=== PATIENT | female | born 1955 | race Caucasian/White ===

== ENCOUNTER 2016-10-27 05:56 | Day surgery (SDC) | payer OTHER ==
[2016-10-27] MEDS ORDERED: LIDOCAINE 1% 5 ML SDV ID PRN (06:16)
[2016-10-27] MEDS ORDERED: LR 1,000 ML IV ONE (06:16)
[2016-10-27] MEDS ORDERED: LIDOCAINE 1% 5 ML SDV ONE (06:19)
[2016-10-27] MEDS ORDERED: SKIN ADHESIVE (DERMABOND) 1 EACH TP ONE (06:24)
[2016-10-27] MEDS ORDERED: LIDOCAINE 1% 30 ML SDV ONE (06:24)
[2016-10-27] MEDS ORDERED: BUPIVACAINE 0.5% 30 ML SDV ONE (06:24)
[2016-10-27] MEDS ORDERED: BACITRACIN 50,000 UNITS/10 ML SYR IRR ONE (06:25)
[2016-10-27] MEDS ORDERED: POLYMYXIN B SULFATE 500,000 UNIT/10 ML SYR IRR ONE (06:25)
[2016-10-27] MEDS ORDERED: SCOPOLAMINE HYDROBROMIDE 1.5 MG PATCH TD ONE (07:08)
[2016-10-27] MEDS ORDERED: MIDAZOLAM 2 MG/2 ML VIAL ONE (07:09)
[2016-10-27] MEDS ORDERED: fentaNYL 250 MCG/5 ML INJ ONE (07:16)
[2016-10-27] MEDS ORDERED: PROPOFOL/EMULSION 500 MG/50 ML BOTTLE IV ONE (07:16)
[2016-10-27] MEDS ORDERED: fentaNYL 100 MCG/2 ML INJ ONE ×2 (08:51→09:18)
[2016-10-27] MEDS ORDERED: oxyCODONE IR 5 MG TAB ONE (10:05)
--- NOTE | 2016-10-28 04:01 | GOP ---
[f rep st] OPERATIVE REPORT PATIENT: DIMA TRUJILLO DATE OF SERVICE: 10/27/16 PATIENT DATE OF : 1955 SURGEON: Quintin Bates M.D. WAITER/WAITRESS ECONOMY CLASS: Shanelle Rojas PA-C Mrs. Souza assistance was medically necessary for patient positioning and the safe retraction of vital structures. ANESTHESIA: General / regional anesthesia by surgeon PREOPERATIVE DIAGNOSES: Right elbow septic olecranon bursitis (ICD-10 code M70.20 olecranon bursitis) POSTOPERATIVE DIAGNOSES: Right elbow septic olecranon bursitis (ICD-10 code M70.20 olecranon bursitis) OPERATIVE PROCEDURES: CPT code 92587 Right elbow olecranon bursa excision CPT code 07050 -- Right elbow cubital tunnel decompression CPT code 84990 Debridement of muscle and fascia, first 20 square cm or less Modifier 47 -- Regional anesthesia by surgeon ESTIMATED BLOOD LOSS: 1cc COMPLICATIONS: None IMPLANTS: None TOURNIQUET TIME: 33 minutes at 250mmHg BRIEF CLINICAL NOTE: This is a very pleasant 61 year old female with a significant history for right elbow septic olecranon bursitis. As such, I have discussed the risks, benefits, alternatives, and complications associated with both non-operative (specifically, casting) and operative (specifically, right elbow olecranon bursa excision with irrigation and debridement and possible cubital tunnel decompression) forms of treatment. The patient fully understands the risks, benefits, alternatives, and complications associated with both forms of treatment and wishes to proceed with operative intervention as outlined above. The patient has signed the informed consent form for surgery. OPERATIVE NOTE: On the day of surgery, all of the patients questions were answered. The patient was then transferred from the pre-operative area into the operating room and a formal, Time-Out procedure was performed. The patient was identified by name, medical record number, social security number, and date of . In addition, the patients right upper extremity was identified as the correct portion of the patients body for surgery with the patients right elbow being identified as the correct portion of that extremity for surgery. The anesthesia team administered pre-operative antibiotics for prophylaxis. The patient was then transferred from the preoperative gurney onto the operating room table and placed in the lateral decubitus position. The brachium was then padded with webril and a tourniquet was applied. The extremity was then prepped and draped in the normal sterile fashion. A sterile marking pen was then utilized to clari out a curvilinear incision overlying the posterior aspect of the olecranon and along the subcutaneous border of the ulna curving radially around the tip of the olecranon process. Next, an Esmarch was then utilized to exsanguinate the right upper extremity and the tourniquet was insufflated to 250 mmHg. A #15 blade was then used to incise through the skin. Meticulous hemostasis was obtained in the subcutaneous plane. Radial and ulnar full thickness skin flaps were then carefully elevated to expose the underlying olecranon bursa.The ulnar nerve was identified proximal to the cubital tunnel and was carefully traced distally. The ulnar nerve was then decompressed throughout the length of the cubital tunnel. The olecranon bursa was then excised en bloc and sent to the laboratory for microbiologic examination. The subcuanteous tissue, muscle and fascia were then sharply surgically debrided and copiously irrigated with sterile normal saline. The skin was then re-approximated with 3-0 nylon sutures. A mixture of 1% lidocaine and 0.5% Marcaine was utilized to perform a regional block of the operative site. Betadine soaked gauze was then applied to the incision by a dry sterile dressing and a compressive isabelle wrap. Once the dressing was completely in place, the tourniquet was deflated. After complete deflation of the tourniquet all fingers and the thumb demonstrated brisk capillary refill. The patient was then reversed from anesthesia and transferred from the operating room table to the postoperative gurney and transferred from the operating room to the post anesthesia care in stable condition. POSTOPERATIVE PLAN: The patient will remain in the current splint and dressing for the next 2 weeks. I will see the patient back in the office in 2 weeks at which point her original dressing will be removed and the sutures will be removed. /[id number]/MODL MTDD
== END 2016-10-27 11:25 | disposition home or self-care (01) ==
LOC: FSGY 05:56
PROVIDERS: ATTEND Orthopaedic Surgery Hand Surgery
PROC: 0MB30ZZ Excision of Right Elbow Bursa and Ligament, Open Approach (ICD-10-PCS; principal; 2016-10-27 07:15)
PROC: 01N40ZZ Release Ulnar Nerve, Open Approach (ICD-10-PCS; principal; 2016-10-27 07:15)
DX: M71.121 Other infective bursitis, right elbow (principal); K21.9 Gastro-esophageal reflux disease without esophagitis; F32.9 Major depressive disorder, single episode, unspecified
CPT/HCPCS: J0690; J2250; J2704; J3010

== ENCOUNTER 2016-11-06 12:16 | Observation (INO) | payer OTHER ==
[2016-11-06] MEDS ORDERED: HYDROmorphONE/DILAUDID 1 MG/ML SYR IVP ONE (12:33)
[2016-11-06] MEDS ORDERED: ONDANSETRON 4 MG/2 ML VIAL IVP ONE ×2 (12:33→13:23)
[2016-11-06] MEDS ORDERED: NS 1,000 ML IV ONE (12:33)
[2016-11-06] MEDS ORDERED: ONDANSETRON 4 MG/2 ML VIAL ONE (12:34)
--- NOTE | 2016-11-06 12:40 | EDPHY ---
H & P Stated Complaint: Slipped on ice and pain in Rt humerous Source: Patient Exam Limitations: No limitations - Personal History Current Tetanus/Diphtheria Vaccine: Yes Current Tetanus Diphtheria and Acellular Pertussis (TDAP): Yes - Medical/Surgical History Hx Asthma: No Hx Chronic Respiratory Disease: No Hx Diabetes: No Hx Cardiac Disease: No Hx Renal Disease: No Hx Cirrhosis: No Hx Alcoholism: No Hx HIV/AIDS: No Hx Splenectomy or Spleen Trauma: No Other PMH: med hx-depression,gerd,uterine ca,seasonal allergies. surg-appy,rt shoulder,left knee,hyst - Social History Smoking Status: Never smoked HPI/ROS: CHIEF COMPLAINT: Fall, humerus pain HISTORY OF PRESENT ILLNESS: slipped and fell in her garage immediately prior to arrival, landing with her arm up and externally rotated. She fell forward. She did not strike her head or lose conscious. She has no back or neck pain. No chest pain or shortness of breath. No abdominal pain. She is complaining of severe pain in the proximal humerus. No actual shoulder joint pain. No position of comfort. He received IV fentanyl EN route by EMS with no improvement. She has no numbness, tingling, cyanosis, pallor distally to the injury. No injury in the ipsilateral elbow, forearm, wrist or hand. She is less than 2 weeks out of a bursectomy on the right elbow that she has seen her surgeon for earlier today. No other associated complaints or modifying factors. Ate scone and coffee this morning less than 2 hours ago PRIOR ORTHO INJURIES: right elbow bursectomy ESTABLISHED ORTHOPEDIST: Dr. choudhary REVIEW OF SYSTEMS: Ten systems reviewed and are negative unless otherwise noted in the HPI EXAMINATION General Appearance: Alert, no distress Head: normocephalic, atraumatic Eyes: Pupils equal and round, no conjunctival pallor or injection. EOMs intact. ENT, Mouth: Mucous membranes moist . Uvula midline. Neck: Normal inspection . No tenderness or crepitus Respiratory: No dyspnea or retractions. No distress Cardiovascular: Pulses normal throughout with symmetric radial pulses at 2+. Brisk cap refill Gastrointestinal: No distention Neurological: A&O, sensory symmetric, strength symmetric in both legs. Strength on testing in the right upper extremity due to pain Skin: Warm and dry, no rash. No lacerations, contusions or abrasions. Right elbow suture line intact. No dehiscence or surrounding erythema. Extremities: Significant tenderness to palpation of the right proximal humerus. Range of motion not tested due to pain. There is no tenderness in the ipsilateral elbow, forearm, wrist or hand. Sensory intact in the radial, ulnar and median distributions. No wrist drop. Psychiatric: Mood and affect normal DIFFERENTIAL DIAGNOSES: Including but not limited to Fracture, strain, sprain, contusion MDM: 12:30 p.m. mechanical fall with pain in the proximal right humerus. Suspect humeral fracture. She is neurovascularly intact distal to the injury. X-rays pending at this time. 1:50 p.m. humeral head and humeral neck fracture. She remains neurovascular intact distally. No injury to the recent surgical incision of the right elbow. At the patient's request, I did contact her established orthopedists. I discussed the case with his PAShanelle. She informed me that this is a non operative fracture. She recommended conservative management with sling and swath. I informed her that the patient says she cannot tolerate her pain despite all this , especially to admit her. The PA informed that they do not admit this scenario as it is nonsurgical, that she could be seen in their office next week. Thus I did contact the hospitalist for admission for pain control. I discussed the case and they will admit her for further care. ED Precautions: Worsening pain. Erythema, edema, cyanosis, pallor, paresthesia or anesthesia. SUPERVISION: Patient was evaluated in conjunction with the supervising physician. Please see their note for details. (Fredrick Guthrie) Constitutional: Initial Vital Signs Temperature (C) 36.4 C 11/06/16 12:16 Heart Rate 69 11/06/16 12:16 Respiratory Rate 16 11/06/16 12:16 Blood Pressure 134/74 H 11/06/16 12:16 O2 Sat (%) 98 11/06/16 12:16 O2 Delivery Mode Room Air Allergies/Adverse Reactions: No Known Allergies Allergy (Verified 03/28/15 19:33) Home Medications: Medication Instructions Recorded Fluoxetine HCl [Prozac 40 mg] 07/04/14 Fluticasone Nasal [Flonase Nasal 03/28/15 [place]] Hydrocodone/APAP 5/325 [[place] 1 - 2 tab PO Q4PRN PRN #20 tab 03/28/15 5/325 (*)] Pantoprazole Sodium [Protonix 40mg 03/28/15 (RX)] Medical Decision Making Other Provider: I supervised the care of Fredrick Guthrie PA-C. I spent an extensive amount of time in consultation with Dr. Cramer from the hospitalist service, [facility] the [facility] admitting nurse, and via phone with Dr. Galdamez. The patient will be admitted for orthopedic evaluation and pain control. (Bipin Durand) - Data Points Medications Given: Discontinued Medications Hydromorphone HCl (Dilaudid) 1 mg IVP EDNOW ONE Stop: 11/06/16 12:34 Last Admin: 11/06/16 12:40 Dose: 1 mg Sodium Chloride (Ns) 1,000 mls @ 0 mls/hr IV ONCE ONE PRN Reason: Wide Open Stop: 11/06/16 12:34 Last Admin: 11/06/16 12:40 Dose: 1,000 mls Ondansetron HCl (Zofran) 8 mg IVP EDNOW ONE Stop: 11/06/16 12:34 Last Admin: 11/06/16 12:38 Dose: 8 mg Ondansetron HCl (Zofran) 4 mg IVP EDNOW ONE Stop: 11/06/16 13:24 Last Admin: 11/06/16 14:10 Dose: 4 mg Departure - Departure Disposition: [facility] Inpatient Acute Clinical Impression: Intractable pain Humerus head fracture Qualifiers: Encounter type: initial encounter Fracture type: closed Laterality: right Qualifier Code: (S42.291A) Other displaced fracture of upper end of right humerus, initial encounter for closed fracture Condition: Fair
--- NOTE | 2016-11-06 13:15 | DX ---
Right Humerus, 4views History: Trauma, pain, fall Comparison: None Findings: There is a comminuted fracture of the right humeral head and neck. The humeral head is nor alexis located in the glenoid. The humeral neck is slightly laterally displaced and mildly shortened c ompared to the humeral head. The more distal humerus is normal. Impression: Humeral head and neck fracture. Consider obtaining x-rays centered at the shoulder.
[2016-11-06] MEDS ORDERED: PROMETHAZINE HCL 25 MG/ML INJ IM ONE (13:23)
[2016-11-06] MEDS ORDERED: ONDANSETRON 4 MG/2 ML VIAL IVP PRN (14:31)
[2016-11-06] MEDS ORDERED: PROMETHAZINE HCL 25 MG/ML INJ IVP PRN (14:31)
[2016-11-06] MEDS ORDERED: DIAZEPAM 2 MG TAB PO PRN (14:38)
[2016-11-06] MEDS ORDERED: HYDROmorphONE/DILAUDID 1 MG/ML SYR ONE (14:43)
[2016-11-06] MEDS: HYDROmorphONE/DILAUDID 1 MG/ML SYR IVP PRN (14:58)
--- NOTE | 2016-11-06 15:52 | GHP ---
[f rep st] HISTORY AND PHYSICAL DATE OF ADMISSION: 11/06/2016 DATE OF EVALUATION: 11/06/2016 CHIEF COMPLAINT: Right arm pain. HISTORY OF PRESENT ILLNESS: This is a 61-year-old female who presents status post a mechanical fall with complaints of acute right arm pain. Patient had presented to her orthopedic clinic with Dr. Manish smith earlier this morning for evaluation of an elbow infection, which he has been treating. Patient had uneventful visit with him, returned home, slipped and fell, bracing her fall with her right arm a nd ultimately fracturing it. Patient describes unmanageable pain with associated nausea. Denies any palpitation, shortness of breath, headache. Denies chronic rhinorrhea. Intermittent dysphagia. De nies any dysuria or hematuria. Patient has issues with chronic diarrhea, for which she takes supplem ents. Denies any blood in her stools, lower extremity edema or other joint complaints beyond her rec ent right elbow infection. PAST MEDICAL HISTORY: 1. Right elbow infection, receiving active treatment. 2. Uterine cancer, status post surgical intervention, chemotherapy and radiation. She has 4-1/2 yea rs out from diagnosis. 3. Chronic rhinorrhea. 4. Depression. 5. Gastroesophageal reflux disease. SOCIAL HISTORY: Negative for tobacco. Very rare alcohol. No illicit drugs or marijuana. FAMILY HISTORY: Negative for diabetes or heart disease. Both parents are ADVANCE DIRECTIVE: Patient is full COR, full tube. Her friend is her MD LEE. REVIEW OF SYSTEMS: A 10-point review of systems is negative with the exception of that reported in H PI. PHYSICAL EXAMINATION: VITAL SIGNS: Blood pressure 134/74, heart rate 69, respiratory rate 16, 98% o n room air, 36.4. GENERAL: This is a healthy-appearing middle-aged female in mild distress. HEENT: Notable for moist mucous membranes. Eye exam is negative for any icterus. CARDIAC: Patient is re gular rate and rhythm. No murmurs, gallops or rubs. PULMONARY: Patient has adequate respiratory ef fort, is clear to auscultation on the anterior left chest. GASTROINTESTINAL: Positive bowel sounds. MUSCULOSKELETAL: Negative for any lower extremity edema. SKIN: Negative for any rashes. NEUROLO GIC: Patient is alert and oriented x3. PSYCHIATRIC: She is tearful on interview and examination. IMAGING: Humeral x-ray, which I personally reviewed and interpreted, shows a humeral head and neck f racture, described as laterally displaced by Radiology. LABORATORY DATA: White blood cell count from 10/21/2016 is 6.3, H and H are 11 and 34. Creatinine a t the time is 0.7. ASSESSMENT AND PLAN: This is a 61-year-old female without significant medical comorbidities, present ing with acute humeral fracture. 1. Acute right humeral fracture, confirmed by plain film x-ray. Case was reviewed with Orthopedic S jamila. This is a nonoperative fracture per their evaluation. Patient will be admitted for adequate pain control. She is to follow with her orthopedic surgeon post disposition in the next 7 days. We will build a pain regimen during this observation stay that will keep her comfortable at home. 2. Acute nausea secondary to pain. We will treat with IV antiemetics as needed. 3. Gastroesophageal reflux disease. We will continue her acid suppression medication once reconcile d. 4. Chronic depression. We will continue her stable home dosing of medications once reconciled. 5. Prophylaxis. The patient is observation only. We will encourage ambulation. DIET: Regular. DISPOSITION: I expect in less than 2 midnights. This patient is being admitted for pain control and treatment of her nausea. I have discussed the case with the emergency room physician. Patient will be triaged to the [facility] for care. /[id number]/MODL
[2016-11-06] MEDS: oxyCODONE IR 5 MG TAB PO PRN ×2 (19:03→23:33)
[2016-11-06] MEDS: ONDANSETRON DISINTEGRATING 4 MG TAB PO PRN (19:09)
[2016-11-06] MEDS: AMOXICILLIN/CLAVULANATE POT 875/125 MG TAB PO SCH (20:53)
[2016-11-06] MEDS: PANTOPRAZOLE SODIUM 40 MG TAB PO SCH (20:54)
[2016-11-06] MEDS: FLUoxetine 20 MG CAP PO SCH (20:54)
[2016-11-06] MEDS ORDERED: NON-FORMULARY NEW DRUG (Fluoxetine Hcl [Prozac 40 Mg] 40 MG) PO SCH (21:00)
[2016-11-07] MEDS: oxyCODONE IR 5 MG TAB PO PRN ×5 (02:39→21:53)
[2016-11-07] MEDS: DIAZEPAM 5 MG TAB PO PRN ×2 (02:40→12:21)
[2016-11-07] MEDS: HYDROmorphONE/DILAUDID 1 MG/ML SYR IVP PRN (02:50)
[2016-11-07] MEDS ORDERED: PROMETHAZINE HCL 25 MG TAB PO PRN (08:48)
[2016-11-07] MEDS: FLUTICASONE NASAL 120 SPRAYS/16 GM MDI EACHNARE SCH (09:00)
[2016-11-07] MEDS: AMOXICILLIN/CLAVULANATE POT 875/125 MG TAB PO SCH ×2 (09:14→21:51)
[2016-11-07] MEDS: ONDANSETRON DISINTEGRATING 4 MG TAB PO PRN ×3 (12:13→22:00)
--- NOTE | 2016-11-07 12:41 | PDIAF ---
- Diagnosis Diagnosis: humeral fracture Code Status: Full Code - Medication Management Discharge Medications: Medications to Continue on Transfer Fluoxetine HCl [Prozac 40 mg] 40 mg PO HS 07/04/14 [Last Taken 11/05/16] Pantoprazole Sodium [Protonix 40mg (*)] 40 mg PO HS 03/28/15 [Last Taken ] Amoxicillin/Clavulanate Pot [Augmentin 875 MG TAB (*)] 875 mg PO BID 11/06/16 [ Last Taken 11/06/16 AM DOSE] Fluticasone Nasal [Flonase Nasal [place]] 1 sprays NASAL DAILY 11/06/16 [Last Taken 11/06/16] Diazepam [Valium 5 MG (*)] 2.5 mg PO Q6 PRN #10 tab 11/07/16 [Last Taken Unknown ] Ondansetron Odt [Zofran Odt 4 mg (*)] 4 mg PO Q4HRS PRN #30 tab 11/07/16 [Last Taken Unknown] Promethazine HCl [Phenergan 25mg (*)] 25 mg PO Q6HRS PRN #30 tab 11/07/16 [Last Taken Unknown] oxyCODONE IR [Oxycodone Ir (*)] 5 - 10 mg PO Q3HRS PRN #45 tab 11/07/16 [Last Taken Unknown] Discharge Medications: Refer to the Discharge Home Medication list for PRN reason. - Orders Services needed: Home Care, Registered Nurse, Certified [employer] Home Care Face to Face: I certify that this patient was under my care and that I had the required [id number] encounter meeting the encounter requirements on the discharge day. My findings support the fact that the patient is homebound as defined in CMS Chapter 7 Medicare Benefits Manual 30.1.1, The condition of the patient is such that there exists a normal inability to leave home and consequently, leaving home would require a considerable and taxing effort. Diet Recommendation: no restrictions on diet Diet Texture: Regular Texture Diet - Follow Up Care Current Providers and Referrals: Quintin Bates MD [Medical Doctor] - As per Instructions Patient,NotPresent [Unknown] - As per Instructions
--- NOTE | 2016-11-07 15:48 | HOSPPROG ---
Hospitalist Progress Note Assessment/Plan: # Acute right humeral fracture- arm x-ray (personally reviewed and interpreted ) shows proximal humeral fracture - orthopedics reviewed this is non operative - in mobility sling - p.r.n. pain medications - follow-up next week with Dr. Key # acute somnolence- secondary to narcotic and sedating pain medications patient evaluated by Physical therapy and deemed not safe to discharge home oxygen saturations 96% on 2 L - reduce frequency of oral pain meds - discontinue IV medications - put p.o. diazepam for spasms on hold # depression continue Prozac # chronic right elbow infection- continue home antibiotics- WBC count last checked normal # gastroesophageal reflux disease- continue PPI # patient not ambulating SCDs # dispo - will need to stay an additional night as not safe for disposition I have discussed the case with physical therapy we will keep the patient additional night and decrease medications for safety Subjective: persistent pain this morning but improved with treatment Objective: Vital Signs Temp Pulse Resp BP Pulse Ox 36.9 C 67 16 103/57 L 96 11/07/16 07:24 11/07/16 07:24 11/07/16 07:24 11/07/16 07:24 11/07/16 07:24 - Physical Exam Constitutional: appears nourished Eyes: anicteric sclera Ears, Nose, Mouth, Throat: moist mucous membranes Cardiovascular: No edema Respiratory: no respiratory distress Gastrointestinal: No distension Genitourinary: No sneed in urethra Skin: normal color Musculoskeletal: No asymmetric calves Neurologic: AAOx3 Psychiatric: interacting appropriately Lymph, Heme, Immunologic: no cervical LAD ICD10 Worksheet Patient Problems: Problems Problem Status Diagnosed Humerus head fracture Acute Intractable pain Acute
[2016-11-07] MEDS ORDERED: POLYETHYLENE GLYCOL 3350 17 GM PKT PO PRN (18:23)
[2016-11-07] MEDS ORDERED: LACTULOSE 20 GM/30 ML UDCUP PO PRN (18:23)
[2016-11-07] MEDS ORDERED: MAGNESIUM HYDROXIDE 30 ML UDCUP PO PRN (18:23)
[2016-11-07] MEDS ORDERED: BISACODYL 10 MG SUPP PR PRN (18:23)
[2016-11-07] MEDS: SENNOSIDES/DOCUSATE SODIUM TAB PO SCH (21:52)
[2016-11-07] MEDS: FLUoxetine 20 MG CAP PO SCH (21:52)
[2016-11-07] MEDS: PANTOPRAZOLE SODIUM 40 MG TAB PO SCH (21:53)
[2016-11-08] MEDS: oxyCODONE IR 5 MG TAB PO PRN ×4 (00:19→11:17)
[2016-11-08] MEDS: ONDANSETRON DISINTEGRATING 4 MG TAB PO PRN ×3 (01:59→11:19)
[2016-11-08 08:24] VITALS: BP 102/61; PULSE 75; RESP 14; TEMP 98.2; O2SAT 90
[2016-11-08 08:57] LABS: % IMMATURE GRANULYOCYTES 0.4 % (0.0-1.1); ABSOLUTE IMMATURE GRANULOCYTES 0.03 10^3/uL (0.00-0.10); ADD DIFF? NO; ADD MORPH? NO; ADD SCAN? NO; ATYPICAL LYMPHOCYTE FLAG 0 (0-99); FRAGMENT RBC FLAG 0 (0-99); HEMATOCRIT 33.1 % (38.0-47.0); HEMOGLOBIN 11.1 g/dL (12.6-16.3); LEFT SHIFT FLG 0 (0-99); LIPEMIA HEMOLYSIS FLAG 80 (0-99); MEAN CELL HEMOGLOBIN 30.3 pg (27.9-34.1); MEAN CELL HEMOGLOBIN CONCENTR. 33.5 g/dL (32.4-36.7); MEAN CELL VOLUME 90.4 fL (81.5-99.8); MEAN PLATELET VOLUME 9.3 fL (8.7-11.7); PLATELET CLUMPS FLAG 10 (0-99); PLATELET COUNT 249 10^3/uL (150-400); RED BLOOD CELL COUNT 3.66 10^6/uL (4.18-5.33); RED CELL DISTRIBUTION WIDTH 13.3 % (11.5-15.2)
[2016-11-08] MEDS: AMOXICILLIN/CLAVULANATE POT 875/125 MG TAB PO SCH (08:59)
[2016-11-08] MEDS: SENNOSIDES/DOCUSATE SODIUM TAB PO SCH (08:59)
[2016-11-08] MEDS: FLUTICASONE NASAL 120 SPRAYS/16 GM MDI EACHNARE SCH (09:03)
[2016-11-08 09:19] LABS: ANION GAP 5 mEq/L (8-16); CALCIUM 9.1 mg/dL (8.5-10.4); CARBON DIOXIDE 27 mEq/l (22-31); CHLORIDE 103 mEq/L (97-110); CREATININE 0.8 mg/dL (0.6-1.0); GLOMERULAR FILTRATION RATE > 60; GLUCOSE 100 mg/dL (70-100); POTASSIUM 4.2 mEq/L (3.5-5.2); SODIUM 135 mEq/L (134-144)
--- NOTE | 2016-11-08 09:48 | DX ---
Chest, PA and Lateral Views, at 9:21 a.m. Clinical History: 61-year-old female inpatient with hypoxia. Comparison Studies: Chest, dated December 12, 2012, and right humerus, dated 11/06/16. Findings: Again noted is a rotatory thoracolumbar sigmoid-shaped scoliosis. The cardiac and mediastin al silhouette is normal in size. There is some diskoid subsegmental atelectasis at the left lung base , and some subsegmental atelectasis versus an infiltrate at the right lung base. The pulmonary vascul ature is normal. There is no pneumothorax. There is some minimal apical pleural thickening. The patie nt's arm obscures the central mediastinal structures on the lateral view. The obliquely oriented and partially comminuted fracture of the proximal right humerus is again noted, with an increased acromio humeral distance, which may reflect a joint effusion. Impression: 1. Sigmoid-shaped rotatory thoracolumbar scoliosis. 2. Bibasilar areas of mild airspace disease consistent with subsegmental atelectasis versus mild infi ltrates, right greater than left. 3. Proximal right humeral fracture.
--- NOTE | 2016-11-08 10:47 | GDS ---
[f rep st] DISCHARGE SUMMARY DISCHARGE DIAGNOSES: 1. Mechanical fall on ice with resultant acute right humeral head and neck fracture, deemed to be no noperative, in mobility sling at this point. 2. History of recent right elbow cellulitis, currently on Augmentin. 3. Acute somnolence, related to narcotic pain medications and benzodiazepine. 4. Hypoxia likely, related to atelectasis from pain, and narcotic and benzodiazepine medications in this admission. PROCEDURES: 1. 11/06/2016: Humeral fracture humeral x-ray which shows a right humeral head and neck fracture. 2. 11/08/2016: Chest x-ray which shows atelectasis. BRIEF HISTORY: Please see dictated H and P by Dr. Cramer for complete details. In brief, the patie nt is a 61-year-old female without significant medical comorbidities, who was seen by Dr. Bates on d ay of admission. She has been followed for a right elbow infection with related to bursitis. She patrick s been on Augmentin. She returned to her home and slipped on ice, which resulted in a right humeral head and neck fracture. She was kept for pain control. Yesterday, she was excessively somnolent and was deemed unsafe for discharge. She is being discharged today with reduced doses of narcotics and benzodiazepine. She is to follow up with Dr. Bates on Wednesday to follow the elbow fracture and no w, humeral head and neck fracture. RESULTS PENDING: None. DIET: Per previous. ACTIVITY: She is instructed on nonweightbearing on the right arm. FOLLOWUP INSTRUCTIONS: Follow up with Dr. Bates as scheduled for this week. /[id number]/MODL
== END 2016-11-08 15:23 | disposition home or self-care (01) ==
LOC: EDUNIT# → F1N 15:08 → F3N 11-07 17:17
PROVIDERS: ADMIT Student in an Organized Health Care Education/Training Program; ATTEND Student in an Organized Health Care Education/Training Program
DX: S42.291A Other displaced fracture of upper end of right humerus, initial encounter for closed fracture (principal); S42.211A Unspecified displaced fracture of surgical neck of right humerus, initial encounter for closed fracture; W00.9XXA Unspecified fall due to ice and snow, initial encounter; R40.0 Somnolence; T40.605A Adverse effect of unspecified narcotics, initial encounter; L03.113 Cellulitis of right upper limb; F32.9 Major depressive disorder, single episode, unspecified; K21.9 Gastro-esophageal reflux disease without esophagitis
CPT/HCPCS: 71020; 73060; 96361; 96374; 96375; 96376; 97110; 97116; 97161; 97166; 97530; 97535; 99285; G0378; A4565; J1170; J2405; J2550

== ENCOUNTER → 2017-05-13 | Outpatient (CLI) | payer OTHER | LOC: FIMAGING 15:18 | PROVIDERS: ATTEND Family Medicine | DX: Z12.31 Encounter for screening mammogram for malignant neoplasm of breast (principal) | CPT/HCPCS: G0202 ==

== ENCOUNTER → 2019-01-13 | Outpatient (CLI) | payer BC | LOC: CIMAGING 12:36 | PROVIDERS: ATTEND Family Medicine | DX: M25.531 Pain in right wrist (principal); E78.00 Pure hypercholesterolemia, unspecified; Z91.81 History of falling | CPT/HCPCS: 73110-PO ==